=== PATIENT | female | born 1985 | race Hispanic/Latino ===

== ENCOUNTER 2018-07-31 01:44 | Emergency (ER) | payer OTHER ==
[~2018-07-31] VITALS: Ht 157.5 cm; Wt 72.6 kg
--- NOTE | 2018-07-31 02:23 | ED GENERAL ADULT ---
History of Present Illness General Chief Complaint: Female Urogenital Problems Stated Complaint: " I HAVE A UTI" Source: patient Exam Limitations: no limitations Vital Signs & Intake/Output Vital Signs & Intake/Output Vital Signs Date Time Temp Pulse Resp B/P B/P Pulse O2 O2 Flow FiO2 Mean Ox Delivery Rate 07/31 0310 99.0 68 20 130/72 97 Room Air 07/31 0147 100.1 66 20 132/76 97 Room Air Allergies Coded Allergies: NO KNOWN ALLERGIES (09/01/11) Reconcile Medications Ibuprofen 600 MG TABLET 1 TAB PO TID PRN pain with food Ondansetron (Zofran Odt) 4 MG TAB.RAPDIS 1 TAB SL TID PRN nausea Phenazopyridine HCl (Pyridium) 100 MG TABLET 1 TAB PO TID PRN painful urination Sulfamethoxazole/Trimethoprim (Bactrim Ds Tablet) 800 MG-160 MG TABLET 1 TAB PO BID INFECION Triage Note: PT HERE WITH C/O UTI "PRESSURE AND BURNING WHEN I PEE AND I HAD A FEVER. Triage Nurses Notes Reviewed? yes Onset: Abrupt Duration: day(s): Timing: recent history Injury Environment: home Severity: moderate No Modifying Factors: none Modifying Factors: Worsens With: other (worse w/urination). Associated Symptoms: dysuria : No Patient currently breastfeeds: No HPI: 33 yo woman h/o uti's presents with dysuria, polyuria x 2-3 days. "I am having a UTI." She notes mild suprapubic fullness and tenderness, increased urination, without fever or flank pain. She is otherwisewell. Past History Travel History Traveled to [place] past 21 day No Medical History Any Pertinent Medical History? see below for history Neurological: NONE EENT: NONE Cardiovascular: NONE Respiratory: NONE Gastrointestinal: NONE Hepatic: NONE Renal: UTI Musculoskeletal: NONE Psychiatric: NONE Endocrine: NONE Blood Disorders: NONE Cancer(s): NONE [employer] APPRENTICE/Reproductive: NONE Tetanus Vaccine: 03/16/12 Surgical History Surgical History: none Psychosocial History Who do you live with Spouse Services at Home None What is your primary language Chinese Tobacco Use: Never used ETOH Use: occasional use Illicit Drug Use: denies illicit drug use Family History Hx Contributory? No Review of Systems Review of Systems Constitutional: Reports: no symptoms. EENTM: Reports: no symptoms. Respiratory: Reports: no symptoms. Cardiovascular: Reports: no symptoms. GI: Reports: no symptoms. Genitourinary: Reports: no symptoms. Musculoskeletal: Reports: no symptoms. Skin: Reports: no symptoms. Neurological/Psychological: Reports: no symptoms. Hematologic/Endocrine: Reports: no symptoms. Immunologic/Allergic: Reports: no symptoms. All Other Systems: Reviewed and Negative Physical Exam Physical Exam General Appearance: well developed/nourished, no apparent distress Comments: Review of Systems - except as otherwise noted in HPI Physical Exam Physical Exam General Appearance: well developed/nourished, no apparent distress Head: atraumatic, normal appearance Eyes: Bilateral: normal appearance. Ears, Nose, Throat: normal pharynx, normal ENT inspection Neck: normal inspection, supple, full range of motion Respiratory: normal breath sounds, chest non-tender, no respiratory distress, quiet respiration, lungs clear Cardiovascular: regular rate/rhythm Gastrointestinal: normal bowel sounds, soft, mild suprapubic tenderness to palpation, no organomegaly, no rlq tenderness, Back: normal inspection, normal range of motion Extremities: normal inspection, normal capillary refill, normal range of motion, no edema Neurologic/Psych: no motor/sensory deficits, awake, alert, oriented x 3 Skin: intact, normal color, warm/dry Core Measures ACS in differential dx? No CVA/TIA Diagnosis: No Sepsis Present: No Sepsis Focused Exam Completed? No Progress Differential Diagnoses I considered the following diagnoses in my evaluation of the patient: uti vs other. Plan of Care: Orders Procedure Date/time Status URINE 07/31 146 Complete URINALYSIS 07/31 146 Complete Laboratory Tests 07/31/18 0202: Urine Color YEL, Urine Clarity CLEAR, Urine pH 8.0, Ur Specific [place] 1.015, Urine Protein NEG, Urine Ketones NEG, Urine Nitrite NEG, Urine Bilirubin NEG, Urine Urobilinogen 1.0, Ur Leukocyte Esterase SMALL H, Ur Microscopic SEDIMENT EXAMINED, Urine RBC 1-3, Urine WBC 5-10 H, Ur Epithelial Cells MANY H, Urine Bacteria MOD H, Urine Hemoglobin NEG, Urine Glucose NEG, Urine Test NEGATIVE Initial ED EKG: none Departure Departure Disposition: HOME OR SELF CARE Condition: Stable Clinical Impression Primary Impression: UTI (urinary tract infection) Referrals: Patient Has No Primary Care Dr (PCP/Family) Departure Forms: Customer Survey General Discharge Information Prescriptions: Current Visit Scripts Sulfamethoxazole/Trimethoprim (Bactrim Ds Tablet) 1 TAB PO BID #14 TAB Ibuprofen 1 TAB PO TID PRN pain #30 TAB with food Ondansetron (Zofran Odt) 1 TAB SL TID PRN nausea #10 TAB Phenazopyridine HCl (Pyridium) 1 TAB PO TID PRN painful urination #6 TAB Comments pt with signs and symptoms of UTI... equivocal U/a... given her symptoms and prior history, will opt to treat empiricially. close follow up advised. Critical Care Note Critical Care Note Critical Care Time: non-applicable
[2018-07-31] MEDS ORDERED: PYRIDIUM100 M1 PO (02:32)
[2018-07-31] MEDS ORDERED: ZOFRAN ODT4 M1 SL (02:32)
[2018-07-31] MEDS ORDERED: BACTRIM DS TAB1 EACH PO (02:32)
[2018-07-31] MEDS ORDERED: IBUPROFEN600 M1 PO (02:32)
[2018-07-31 03:10] VITALS: BP 130/72
== END 2018-07-31 03:15 ==
LOC: ERH 01:44
DX: N39.0 Urinary tract infection, site not specified (principal); F10.10 Alcohol abuse, uncomplicated
CPT/HCPCS: 81001; 81025